=== PATIENT | female | born 1985 | race Two or more races ===

== ENCOUNTER 2021-05-11 16:55 | Emergency (ER) | payer MEDICAID, OTHER ==
[~2021-05-11] VITALS: Ht 154.9 cm; Wt 66.7 kg
[2021-05-11 18:57] LABS: Urine Bacteria FEW /hpf (None Seen); Urine Blood Negative /uL (Negative); Urine Mucus FEW (None Seen); Urine WBC 8 /hpf (0 - 5); Urine WBC Clumps PRESENT /hpf (None Seen)
[2021-05-11 19:10] LABS: Basophils # (auto) 0 10 ^3/uL (0-0.2); Eosinophils # (auto) 0 10 ^3/uL (0-0.8)
[2021-05-11 19:12] LABS: Basophils % (auto) 0.4 % (0.0-2.0); Eosinophils % (auto) 0.5 % (0.0-7.0); Hematocrit 28.7 % (36.0-46.0); Hemoglobin 9.5 g/dL (12.2-16.2); Lymphocytes # (auto) 1.6 10 ^3/uL (0.4-5.4); Lymphocytes % (auto) 16.6 % (10.0-50.0); Mean Corpuscular Hemoglobin 25.1 pg (28.0-32.0); Mean Corpuscular Hgb Conc. 33.1 g/dL (32.0-36.0); Mean Corpuscular Volume 75.9 fL (80.0-100.0); Monocytes # (auto) 0.5 10 ^3/uL (0-1.3); Monocytes % (auto) 4.8 % (0.0-12.0); Neutrophils # (auto) 7.4 10 ^3/uL (1.6-8.6); Neutrophils % (auto) 77.7 % (37.0-80.0); Red Blood Cells 3.78 10^6/uL (4.0-5.20); Red Cell Distribution Width 14.3 % (11.8-14.3); White Blood Cell 9.5 10^3/uL (4.4-10.8)
[2021-05-11 19:26] LABS: Albumin 2.8 g/dL (3.4-5.0); Calcium 8.4 mg/dL (8.5-10.1); Potassium 3.5 mmol/L (3.5-5.1)
[2021-05-11 19:29] LABS: Bilirubin, Total 0.2 mg/dL (0.2-1.0)
[2021-05-12 00:43] VITALS: BP 131/45
== END 2021-05-12 00:44 | disposition home or self-care (01) ==
LOC: ER 17:02
DX: O26.892 Other specified pregnancy related conditions, second trimester (principal); R10.2 Pelvic and perineal pain; Z3A.18 18 weeks gestation of pregnancy
CPT/HCPCS: 36415; 76805; 80053; 81001; 84702; 85025

== ENCOUNTER → 2021-09-19 | Outpatient (CLI) | payer MEDICAID ==
[2021-09-19 11:24] LABS: Basophils # (auto) 0 10 ^3/uL (0-0.2); Eosinophils # (auto) 0 10 ^3/uL (0-0.8); Eosinophils % (auto) 0.5 % (0.0-7.0); Monocytes # (auto) 0.5 10 ^3/uL (0-1.3)
[2021-09-19 11:27] LABS: Basophils % (auto) 0.3 % (0.0-2.0); Hematocrit 29.8 % (36.0-46.0); Hemoglobin 9.3 g/dL (12.2-16.2); Lymphocytes # (auto) 1.4 10 ^3/uL (0.4-5.4); Lymphocytes % (auto) 15.9 % (10.0-50.0); Mean Corpuscular Hemoglobin 22.7 pg (28.0-32.0); Mean Corpuscular Hgb Conc. 31.2 g/dL (32.0-36.0); Monocytes % (auto) 6.1 % (0.0-12.0); Neutrophils # (auto) 6.6 10 ^3/uL (1.6-8.6); Neutrophils % (auto) 77.2 % (37.0-80.0); Red Blood Cells 4.08 10^6/uL (4.0-5.20); White Blood Cell 8.6 10^3/uL (4.4-10.8)
[2021-09-19 11:45] LABS: Red Cell Distribution Width 25.6 % (11.8-14.3)
[2021-09-20 06:06] LABS: RPR Non Reactive (Non Reactive)
== END | disposition home or self-care (01) ==
LOC: LAB 10:56
PROVIDERS: ATTEND Obstetrics & Gynecology
DX: Z34.80 Encounter for supervision of other normal pregnancy, unspecified trimester (principal)
CPT/HCPCS: 36415; 85025; 86592

== ENCOUNTER 2021-10-08 06:55 | Inpatient (IN) | payer MEDICAID ==
[~2021-10-08] VITALS: Ht 154.9 cm; Wt 82.1 kg
[2021-10-08] MEDS ORDERED: PHISODERM TOP SOLN 240ML BTL TOP PRN (07:30)
[2021-10-08] MEDS ORDERED: PROMETHAZINE HCL 25 MG/ML 1ML IV PRN (07:30)
[2021-10-08] MEDS ORDERED: BUTORPHANOL TARTRATE 2 MG/1 ML VIAL IV PRN ×2 (07:30)
[2021-10-08] MEDS ORDERED: DERMOPLAST 60ML BOTTLE TOP PRN (07:30)
[2021-10-08] MEDS ORDERED: WITCH HAZEL-GLYCERIN PAD TOP PRN (07:30)
[2021-10-08] MEDS ORDERED: LIDOCAINE 2%HCL (LOCAL ANESTH.) INJ 10ml MDV IJ PRN (07:30)
[2021-10-08] MEDS ORDERED: CARBOPROST TROMETHAMINE 250 MCG/1ML VIAL IM PRN (07:45)
[2021-10-08] MEDS ORDERED: ONDANSETRON HCL 4 MG/2 ML VIAL IV PRN (07:45)
[2021-10-08] MEDS ORDERED: METHYLERGONOVINE MALEATE 0.2 MG/ML AMP IM PRN (07:45)
[2021-10-08] MEDS ORDERED: miSOPROStol 100 mcg TAB PR PRN (07:45)
[2021-10-08] MEDS ORDERED: miSOPROStol 100 mcg TAB SL PRN (07:45)
[2021-10-08] MEDS: LACTATED RINGER'S 1,000 ML IV SCH ×2 (07:57→09:27)
[2021-10-08] MEDS ORDERED: NS/OXYTOCIN 20UNITS 500 ML IV ONE ×2 (08:00→08:30)
[2021-10-08 08:07] LABS: Eosinophils # (auto) 0 10 ^3/uL (0-0.8); Eosinophils % (auto) 0.4 % (0.0-7.0); Mean Corpuscular Hemoglobin 22.7 pg (28.0-32.0); Monocytes # (auto) 0.6 10 ^3/uL (0-1.3); Neutrophils # (auto) 8.1 10 ^3/uL (1.6-8.6); Nucleated Red Blood Cells % 0.1 %; White Blood Cell 10.5 10^3/uL (4.4-10.8)
[2021-10-08 08:09] LABS: Basophils # (auto) 0.1 10 ^3/uL (0-0.2); Basophils % (auto) 0.5 % (0.0-2.0); Hematocrit 32.6 % (36.0-46.0); Lymphocytes # (auto) 1.7 10 ^3/uL (0.4-5.4); Lymphocytes % (auto) 15.8 % (10.0-50.0); Mean Corpuscular Hgb Conc. 30.7 g/dL (32.0-36.0); Mean Corpuscular Volume 74.1 fL (80.0-100.0); Monocytes % (auto) 6.2 % (0.0-12.0); Neutrophils % (auto) 77.1 % (37.0-80.0)
[2021-10-08 08:12] LABS: Red Cell Distribution Width 22.7 % (11.8-14.3)
[2021-10-08 08:13] LABS: Urine Bacteria NONE SEEN /hpf (None Seen); Urine Blood 3+ /uL (Negative); Urine Budding Yeast MODERATE /hpf (None Seen); Urine Mucus FEW (None Seen); Urine WBC 649 /hpf (0 - 5); Urine WBC Clumps PRESENT /hpf (None Seen)
[2021-10-08 08:19] LABS: Albumin 2.5 g/dL (3.4-5.0); Calcium 8.1 mg/dL (8.5-10.1); Potassium 3.7 mmol/L (3.5-5.1)
[2021-10-08 08:21] LABS: Alcohol, Urine < 3.0 mg/dL (0-10); Amphetamine Screen, Urine NEGATIVE (NEGATIVE); Barbiturate Scree,Urine NEGATIVE (NEGATIVE); Benzodiazephine Screen, Urine NEGATIVE (NEGATIVE); Cannabinoid Screen, Urine NEGATIVE (NEGATIVE); Cocaine Screen, Urine NEGATIVE (NEGATIVE); Opiate Scree,Urine NEGATIVE (NEGATIVE); Phencyclidine Screen, Urine NEGATIVE (NEGATIVE)
[2021-10-08 08:22] LABS: Bilirubin, Total 0.2 mg/dL (0.2-1.0); INR 0.89 (0.9-1.15); Partial Thromboplastin Time 25.1 sec (24.6-33.4)
[2021-10-08] MEDS ORDERED: fentaNYL CITRATE 100 MCG/2 ML VL IV ONE (08:45)
[2021-10-08] MEDS ORDERED: LIDOCAINE HCL 2 %PF INJ 10ML AMP IJ ONE (08:45)
[2021-10-08] MEDS ORDERED: ROPIVACAINE HCL 200 ML EPI SCH ×2 (08:45→09:00)
[2021-10-08] MEDS ORDERED: NALOXONE HCL 0.4 MG/ML VIAL IV ONE (08:45)
[2021-10-08] MEDS ORDERED: ePHEDrine SULFATE 50 MG/ML AMP IV ONE (08:45)
[2021-10-08] MEDS ORDERED: LACTATED RINGER'S 1,000 ML IV ONE (08:45)
[2021-10-08] MEDS ORDERED: DIPHENOXYLATE W/ATROPINE 2.5 MG TAB PO SCH (10:00)
[2021-10-08] MEDS ORDERED: ONDANSETRON ODT 4 MG TAB PO PRN (12:00)
[2021-10-08] MEDS ORDERED: ACETAMINOPHEN 325 MG TAB PO PRN (12:00)
[2021-10-08] MEDS: IBUPROFEN 600 MG TAB PO PRN (14:26)
[2021-10-08] MEDS: ceFAZolin 1GM/50ML 50 ML IV SCH ×2 (14:27→21:57)
[2021-10-08 15:00] VITALS: BP 120/59
[2021-10-08 19:30] VITALS: BP 122/72
[2021-10-08] MEDS ORDERED: TETANUS-DIPTH-ACEL PERTUSSIS 0.5ML SYR Tdap IM ONE (20:45)
[2021-10-08 23:00] VITALS: BP 115/68
[2021-10-09 03:00] VITALS: BP 117/70
[2021-10-09] MEDS: IBUPROFEN 600 MG TAB PO PRN (03:29)
[2021-10-09] MEDS: ceFAZolin 1GM/50ML 50 ML IV SCH (05:43)
[2021-10-09 07:00] VITALS: BP 123/70
[2021-10-09] MEDS ORDERED: PREN-96 PO (07:15)
[2021-10-10 06:06] LABS: RPR Non Reactive (Non Reactive)
== END 2021-10-09 15:13 | disposition home or self-care (01) | DRG 560 ==
LOC: LDRP 06:55 → OBSVTOIN 07:15 → LDRP 07:21
PROVIDERS: ADMIT Obstetrics & Gynecology; ATTEND Obstetrics & Gynecology
PROC: 10E0XZZ Delivery of Products of Conception, External Approach (ICD-10-PCS; principal; 2021-10-08)
DX: O69.1XX0 Labor and delivery complicated by cord around neck, with compression, not applicable or unspecified (principal); Z37.0 Single live birth; Z20.822 Contact with and (suspected) exposure to COVID-19; Z3A.39 39 weeks gestation of pregnancy
CPT/HCPCS: 36415; 59025; 59409; 80053; 80307; 81001; 81002; 85025; 85610; 85730; 86592; 86850; 86900; 86901; 90715; 94760; 96360; 96361; 96365; 96366; 96372; G0378; J0690; J2001